=== PATIENT | female | born 1995 | race Caucasian/White ===

== ENCOUNTER 2022-11-09 09:14 | Day surgery (SDC) | payer MEDICAID ==
[~2022-11-09] VITALS: Ht 154.9 cm; Wt 73.5 kg
[2022-11-09] MEDS ORDERED: MIDAZOLAM 2 MG/2 ML VIAL ONE (10:12)
[2022-11-09] MEDS ORDERED: diphenhydrAMINE 50 MG/ML VIAL ONE (10:12)
[2022-11-09] MEDS ORDERED: fentaNYL citrate 0.05 MG/ML VIAL ONE (10:12)
[2022-11-09] MEDS ORDERED: MIDAZOLAM 5 MG/5 ML VIAL ONE (10:12)
[2022-11-09] MEDS ORDERED: LIDOCAINE 2% 100 MG/5 ML UJET TP ONE (10:12)
[2022-11-09] MEDS ORDERED: MIDAZOLAM 2 MG/2 ML VIAL IVP ONE (11:25)
[2022-11-09] MEDS ORDERED: fentaNYL citrate 0.05 MG/ML VIAL IVP ONE (11:25)
[2022-11-09] MEDS ORDERED: diphenhydrAMINE 50 MG/ML VIAL IVP ONE (11:25)
== END 2022-11-09 12:05 | disposition home or self-care (01) ==
LOC: MDS 09:14 → MMU 09:15 → MDS 12:05
PROVIDERS: ATTEND Internal Medicine Gastroenterology
DX: K62.5 Hemorrhage of anus and rectum (principal); K63.5 Polyp of colon
CPT/HCPCS: 45381; 45385; 88305; J1200; J2250; J3010